=== PATIENT | male | born 1960 | race Two or more races ===

== ENCOUNTER 2023-03-14 18:12 | Emergency (ER) | payer OTHER ==
[~2023-03-14] VITALS: Ht 165.1 cm; Wt 90.6 kg
[2023-03-15] MEDS ORDERED: ONDANSETRON ODT 4 MG TAB PO ONE (01:15)
[2023-03-15] MEDS ORDERED: HYDROcodone-ACET 5/325MG TAB PO ONE (01:15)
[2023-03-15] MEDS ORDERED: ACE3T PO (01:17)
[2023-03-15 01:46] VITALS: BP 137/78; PULSE 87; RESP 18; TEMP 98.7; O2SAT 96
== END 2023-03-15 01:46 | disposition home or self-care (01) ==
LOC: ER 18:12
DX: S82.55XA Nondisplaced fracture of medial malleolus of left tibia, initial encounter for closed fracture (principal); W01.0XXA Fall on same level from slipping, tripping and stumbling without subsequent striking against object, initial encounter; Y93.89 Activity, other specified; Y92.89 Other specified places as the place of occurrence of the external cause; Y99.8 Other external cause status
CPT/HCPCS: 29515; 73700; 93971; 99284; Q0162